=== PATIENT | female | born 1975 | race Caucasian/White ===

== ENCOUNTER 2016-09-19 00:31 | Observation (INO) | payer MEDICAID ==
[~2016-09-19] VITALS: Ht 157.5 cm; Wt 100.4 kg
--- NOTE | ~2016-09-19 | ECH ---
Transthoracic Echocardiography Report (TTE) Demographics Patient Name THOMAS POLANCO Date of Study 09/19/2016 Patient Number [id number] Visit Number [id number] Date of 1975 Room Number 418 Accession Number [id number] Gender Female Age 41 year(s) Referring Josh Healy Location Manager Stacy Pineda [facility] Physician Roman Ceballos MD Physician Interpreting Roman Ceballos Vice President & General Manager [employer] Physician MD Supervising Ordering Physician Josh Healy MD/P Nurse Stress Ferry Hand Conclusions Summary Technically fair exam. The estimated left ventricular ejection fraction is 60-65%. Mild septal left ventricular hypertrophy. Mild mitral regurgitation. Procedure Type of Study TTE procedure:Echo Complete SF. Procedure Date Date: 09/19/2016 Start: 11:36 AM Technical Quality: Fair due to body habitus. Indications:Atypical Chest Pain. Appropriate Use Criteria: 9 Height: 62 inches Weight: 220.02 pounds BSA: 1.99 m Rhythm: NSR HR: 59 bpm BP: 117/74 mmHg M-Mode/2D Measurements LV Diastolic Dimension: 4.83 cm LV Systolic Dimension: 0.85 cm LV Septum Diastolic: 1.13 cm LV Septum Systolic: 2.79 cm LV PW Diastolic: 0.9 cm LV PW Systolic: 4.69 cm Cardiac Output: 4.55 l/min AO Root Dimension: 3.08 cm Cardiac Index: 2.29 l/min*m RV Diastolic Dimension: 2.31 cm LA volume: 53.24 ml LA volume index: 27 ml/m LVOT: 1.92 cm RV Base: 3.14 cm LVOT VTI: 26.64 cm RV Mid: 3.08 cm LV Stroke volume: 77.09 ml RV Length: 7.36 cm LV Stroke volume index: 38.74 ml/m Doppler Measurements AV Peak Velocity: 1.26 m/s MV Peak E-Wave: 0.66 m/s AV Peak Gradient: 6.35 mmHg MV Peak A-Wave: 0.42 m/s AV Mean Gradient: 3.66 mmHg MV E/A Ratio: 1.59 LVOT Peak Velocity: 1.1 m/s MV P1/2t: 56.5 msec AV Area (Continuity):2.71 cm MV Deceleration Time: 207.2 msec TR Velocity:2.12 m/s MV Area (PHT): 3.9 cm TR Gradient:17.95 mmHg PV Peak Velocity: 0.79 m/s Estimated RAP:3 mmHg PV Peak Gradient: 2.49 mmHg Estimated RVSP: 21 mmHg Estimated PASP: 20.95 mmHg RA Area: 12.55 cm Findings Left Ventricle The left ventricle is normal in size . Mild septal left ventricular hypertrophy. Diastolic assessment reveals normal relaxation. Right Ventricle Normal right ventricle structure and function. Left Atrium Normal left atrial size by left atrial volume index of 26.7ml/m2. Right Atrium Normal right atrial size. Mitral Valve Normal mitral valve structure and function. Mild mitral regurgitation by color Doppler. Aortic Valve Normal aortic valve structure and function. There is no aortic regurgitation by color Doppler. Tricuspid Valve Normal tricuspid valve structure and function. Mild tricuspid regurgitation by color Doppler. Estimated pulmonary pressures within normal range. Pulmonic Valve Normal pulmonic valve structure and function. Pericardial Effusion No evidence of pericardial effusion. Miscellaneous Visualized portions of the aortic root and ascending aorta appear normal in size. Pleural Effusion No evidence of pleural effusion. Contractility Score LV regional wall motion:(0-Non visualized 1-Normal 2-Hypokinesis 3-Akinesis 4-Dyskinesis 5-Aneurysm) Signature
--- NOTE | ~2016-09-19 | ECH ---
Cardiac Stress Test Demographics Patient Name THOMAS POLANCO Date of Study 09/21/2016 Patient Number [id number] Visit Number [id number] Date of 1975 Room Number 418 Accession Number [id number] Gender Female Age 41 year(s) Referring Josh Michele Monet Interpreting [facility] Physician Physician Roman Ceballos MD Physician Ordering Roman Walton R Track Layer Physician MD Supervising Roman Ceballos Stress Electromechanical Equipment Tester Korin Ramirez MD/BRYANT GUZMAN Nurse Umair Piper The procedure was explained in detail to the patient. Risks, complications and alternative treatments were reviewed. Written consent was obtained. Medications reviewed with patient prior to procedure. Procedure Type of Study Cardiac Stress Test:Treadmill Stress Test SF. Procedure Date Date: 09/21/2016 Start: 07:00 AM Indications:Chest pain. Patient Status: Routine Allergies - No known allergies. Conclusions Summary 1. Negative exercise treadmill for ischemia. Stress Protocol Rest ECG Within normal limits. Normal sinus rhythm. Resting HR:69 bpmResting BP:108/82 mmHg Stress Stress Protocol: Exercise - Robin Peak HR: 166 bpm HR BP Product: [id number] Peak BP: 144/92 mmHg Max Exercise: 6.6 METS Predicted HR: 180 bpm % of predicted HR: 92 Test Duration: 06:40 min Reason for Termination: Dyspnea ECG No significant ST changes with exercise. Arrhythmias No arrhythmias noted. Symptoms chest pain Signature
--- NOTE | ~2016-09-19 | OR ---
ADMIT: 09/19/2016 RM/LOC: 418 [facility] MR#: [id number] [address] [address] THOMAS POLANCO [address] [place] [phone] Operative/Delivery Room Report SEX: F AGE: 41 : 1975 SURGERY DATE: 09/20/2016 SURGEON: Robert Chau MD PRE-PROCEDURE DIAGNOSIS: Chest pain. POSTPROCEDURE DIAGNOSIS: Antral gastritis with possibly 2 small healing pyloric channel ulcers. PROCEDURE: EGD with antral distal esophageal biopsies. INDICATIONS: Patient is a 41-year-old with nonspecific left-sided chest and shoulder discomfort with no obvious precipitating factors who presents for EGD evaluation. FINDINGS: The patient was taken to the endoscopy suite. IV sedation was given. She was placed in left lateral decubitus position. A bite-block was placed in the patient's mouth. The gastroscope was introduced down the oropharynx, down the esophagus, into the stomach through the pylorus and the duodenum. The duodenal bulb, second and third portion of the duodenum appeared normal with no pathology. Right within the pyloric channel, there were 2 areas that appeared to be possibly 2 small healing pyloric channel ulcers and there was surrounding antral gastritis. I did do antral biopsies right over the top of these small healing sites. Remainder of the gastric body and fundus actually appeared normal. On retroflexion view, there did not appear to be a hiatal hernia. On exam of the GE junction, there was a normal squamocolumnar junction with possibly some mild esophagitis. No varices. No Montoya's esophagus. No stricture. I did do several distal esophageal biopsies due to her chest pain. Remainder of the mid and upper esophagus otherwise unremarkable. The gastroscope was removed. The patient tolerated the procedure without difficulty, transferred to recovery room in good condition during indication. Robert Chau MD/ carlee JOB #: [id number] CC: Ryne Moreno, Attending Physician Ryne Moreno, Family Physician
--- NOTE | 2016-09-19 07:02 | ER ---
ADMIT: 09/19/2016 RM/LOC: 418 [facility] MR#: [id number] 2620 [facility] [address] [place] [id number] THOMAS POLANCO [address] [place] [phone] Emergency Room Report SEX: F AGE: 41 : 1975 DATE: 09/19/2016 CHIEF COMPLAINT: Chest pain. HISTORY OF PRESENT ILLNESS: The patient is a 41-year-old female, complaining of substernal to epigastric pain radiating to left shoulder and scapula associated with nausea and eructations within 4 hours of eating ribs. States the pain is worse when she lies down. Denies any vomiting, fevers, chills, or previous discomfort. Strong family history for gallbladder disease in both children. Adolescent children have had their gallbladders out as well as her mother. Also, strong family history of premature heart disease and in her father. The patient's coronary risk factors only are family history. PAST MEDICAL HISTORY: ILLNESSES: Tricuspid regurg by history. OPERATIONS: Appendectomy. ALLERGIES: NONE. MEDICATIONS: None. SOCIAL HISTORY: . Nonsmoker. Nondrinker. No illicit drugs. FAMILY HISTORY: Positive for heart disease in father, gallbladder disease in mother and 2 children. REVIEW OF SYSTEMS: A 12-point review of systems negative for all other systems, illnesses, or operations except as outlined above. PHYSICAL EXAMINATION: VITAL SIGNS: Temperature 98.6, pulse 68, respirations 24, BP 155/84, SaO2 of 100% on room air. GENERAL: Anxious, non-diaphoretic, without jaundice or icterus HEENT: Normocephalic. No evidence of epistaxis, rhinorrhea, or otorrhea. NECK: Supple without lymphadenopathy or thyromegaly. CHEST: Clear. Breath sounds equal. HEART: Regular rate and rhythm without murmur, gallop, or edema. ABDOMEN: Soft, tender right upper quadrant without mass or megaly. Bowel sounds hypoactive. EXTREMITIES: No evidence of Homans sign, synovitis, or dermatitis. NEURO: EOMI. PERRLA. No evidence of drift, dysarthria, or ataxia. Gait normal. MEDICAL DECISION MAKING: EKG shows sinus bradycardia, rate of 54 with low voltage, nonspecific ST changes. Chest x-ray, negative. CTA chest, negative for PE or pneumonia. CT abdomen; slightly distended gallbladder, otherwise unremarkable. Normal CBC, CMP, lactic 1.4, lipase 186, CRP 0.61, D-dimer 0.54, BNP 158, troponin less than 0.015. The patient was given IV fluids, Zofran, Toradol, Dilaudid, and IV acetaminophen with slight improvement. GI cocktail, Protonix with no significant change. Discussed case with Dr. Moreno, ADMIT: 09/19/2016 RM/LOC: 418 [facility] MR#: [id number] [address] [place] [phone] THOMAS POLANCO [address] [place], [place] [phone] Emergency Room Report SEX: F AGE: 41 : 1975 who agreed and gave orders to nursing staff. DIAGNOSES: 1. Atypical chest pain. 2. Biliary colic. 3. Strong family history of gallbladder disease. 4. Strong family history of premature heart disease. RECOMMENDATION: Admit inpatient telemetry for Dr. Moreno. ADMISSION/DISCHARGE CONDITION: Stable. CODE STATUS: The patient is a full code. Jeff Hazel MD/ osbaldol JOB #: [id number] CC: Ryne Moreno MD, Attending Physician Ryne Moreno MD, Family Physician Ryne Moreno MD
[2016-09-22] MEDS ORDERED: CARAFATE DPS1 GM PO (14:19)
[2016-09-22] MEDS ORDERED: OMEPRAZOLE40 MG PO (14:19)
[2016-09-22] MEDS ORDERED: PEPCID40 MG PO (14:19)
[2016-09-22] MEDS ORDERED: TYLENOL DPS325 MG PO (14:20)
[2016-09-22] MEDS ORDERED: BENTYL-DPS20 MG PO (14:20)
[2016-09-22] MEDS ORDERED: TYLENOL EXTRA500 M1 PO (14:20)
[2016-09-22] MEDS ORDERED: MAALOX DPS30 ML PO (14:20)
--- NOTE | 2016-09-23 10:38 | CO ---
ADMIT: 09/19/2016 RM/LOC: 418 [facility] MR#: [id number] [facility]#: [id number] [address] [address] THOMAS POLANCO [address] [place] [phone] Consultation SEX: F AGE: 41 : 1975 DATE OF CONSULTATION: 09/19/2016 ATTENDING PHYSICIAN: Ryne Moreno CONSULTING PHYSICIAN: Anton Owens MD REASON FOR CONSULT: Chest pain. HISTORY OF PRESENT ILLNESS: The patient presents to the ER today with an episode of chest pain that started last night. The patient described the chest pain as substernal and epigastric tightness. This chest pain has been constant since last night. She says it radiates to her left shoulder and scapula as well as the left side of her neck. Associated symptoms included nausea without vomiting, mild shortness of breath, and mild diaphoresis. The patient states that the chest tightness is worse when lying down. Nothing makes it better. This chest pain episode started last night a couple hours after eating ribs. The patient reports that she has had several episodes of this chest tightness over the past week, but they went away after a short period of time. She denies association of the chest pain with eating or exertion. The patient does report that she has a strong family history of gallbladder disease. CARDIOVASCULAR RISK FACTORS: Positive for family history of heart disease as her dad had premature coronary artery disease. Negative smoking history, drinking history, drug use or abuse, High blood pressure, High cholesterol or diabetes. She has no previous cardiac history. The patient does take a baby aspirin daily. PAST MEDICAL HISTORY: Significant illnesses: none. MEDICATIONS: Normal saline, Protonix 40 mg IV q.24 hours. HOME MEDICATIONS: Aspirin 81 mg p.o. daily. ALLERGIES: NO KNOWN DRUG ALLERGIES. FAMILY HISTORY: Dad, premature coronary artery disease. SOCIAL HISTORY: The patient does not drink alcohol. Has history of drug use or abuse. Marital status: . REVIEW OF SYSTEMS: GENERAL: Denies fatigue, fever, chills, sweats, rash, or weight loss. EYES: Denies double vision, blurred vision, cataracts, or glaucoma. ENT: Denies hearing loss or problems with nose, mouth or throat. PULMONARY: Denies cough, sputum production, asthma, emphysema or bronchitis. Denies snoring loudly, wakefulness at night, or fatigue upon awakening. GASTROINTESTINAL: Denies heartburn or difficulty swallowing. No change in bowel habits. Denies dark or bloody stools. No history of ulcers, hiatal hernia, or gallbladder or liver disease. ADMIT: 09/19/2016 RM/LOC: 418 [facility] MR#: [id number] [address] [address] THOMAS POLANCO [address] [place] [address] Consultation SEX: F AGE: 41 : 1975 GENITOURINARY: Denies dysuria, hematuria, nocturia, urinary tract infection, or kidney stones. Denies history of renal insufficiency or failure. MUSCULOSKELETAL: Denies history of arthritis or gout. Denies muscle or joint pains. ENDOCRINE: Denies history of thyroid dysfunction or diabetes. HEMATOLOGIC: Denies history of anemia, easy bruising, or cancer. NEUROLOGIC: Denies chronic headaches, dizziness, syncope, stroke, seizures or numbness or tingling. PSYCHIATRIC: Denies history of mental illness or feelings of depression. PHYSICAL EXAMINATION: GENERAL: No acute distress, quiet. NECK: No bruits or JVD. HEART: Regular. No murmurs. LUNGS: Clear to auscultation. No crackles. ABDOMINAL: Obese. EXTREMITIES: No edema. PSYCH: Alert and oriented x3. LABS: Sodium 141, potassium 3.7, chloride 108, CO2 27, BUN 11, creatinine 1.0, glucose 104, calcium 8.8, D-dimer 0.54, CRP 0.61, CK-MB less than 0.05, troponin less than 0.015. White blood cell count 8.3, hemoglobin 11.1. Ultrasound of gallbladder unremarkable. Chest x-ray is negative. EKG, sinus bradycardia at [address] angiogram negative for PE or pneumonia. CT of the abdomen and pelvis-slightly distended gallbladder, otherwise unremarkable. HIDA pending. Echocardiogram pending. ASSESSMENT: 1. Atypical chest pain. 2. Family history of premature coronary artery disease. RECOMMENDATIONS: Low suspicion for acute coronary syndrome or obstructive coronary artery disease. Echocardiogram today. We will decide about need for stress test based on GI evaluation and echo results. JADEN Pinedo Student / Anton Owens MD / carlee JOB #: [id number] CC: Ryne Moreno, Attending Physician Ryne Moreno, Family Physician
--- NOTE | 2016-09-23 19:22 | HP ---
ADMIT: 09/19/2016 RM/LOC: 418 [facility] MR#: [id number] 2620 [facility] [address] [place] [phone] ADELAIDE POLANCORA Healy [address] [place] [address] History and Physical SEX: F AGE: 41 : 1975 DATE OF SERVICE: CONSULTING PHYSICIAN: [facility] as well as [facility]. CHIEF COMPLAINT: Chest pain with associated nausea and epigastric discomfort. CLINICAL HISTORY: The patient is a 41-year-old white female, [place] patient, who is admitted early on the morning of 09/19/2016 after presenting to the emergency room at approximately 2:00 a.m. complaining of substernal chest pain, epigastric abdominal pain with marked nausea with excessive gas and bloating. The chest discomfort and epigastric pain radiated up into her upper chest as well as into her left shoulder and posteriorly into her scapula. The patient notes that she had been feeling fine on 09/18/2016. She ate a large meal late in the evening around 8:00 p.m., having barbecued ribs. The pain developed approximately 4 hours after her ingestion of her large meal. She notes that the pain was quite severe in the substernal and epigastric area, seemed to radiate through into her back. She was very nauseated with this. The pain was quite intense and for that reason, her brought her to the emergency room because she could not get comfortable at home. It is noted that she is admitted with similar chest pain in 12/2015, was admitted then with chest discomfort with pain in the chest and epigastric area radiating to her left side of her neck, left jaw as well as into the left posterior chest. On both occasions, she has been very nauseated, but has not vomited. She notes that the chest pain is so severe on each occasion, it feels like it is hard for her to take a deep breath, and she gets short of breath. The patient notes in the interim since she was last hospitalized in 12/2015, she has had a couple of minor episodes of similar pain, but has never been of this severity. She notes the pain she had, which started early on the morning of 09/19/2016, to be the worst episode of the chest pain that she has had. It is noted that she was seen by Cardiology during her last admission and had been recommended that she have an outpatient stress test to rule out cardiac etiology for her chest pain, however, she never followed through on that Cardiology followup at [facility]. The patient was evaluated in the ER by Dr. Hazel. Her EKG in the ER was noted to have no acute changes and no changes when compared to her previous EKG from December. She had a sinus bradycardia with some nonspecific ST-T wave changes. Her chest pain was severe enough that she also had a CTA of the chest, which was negative for pulmonary embolus or pneumonia. No acute pathology. The chest x- ray was also normal. A CT of the abdomen and pelvis was obtained, which showed a slightly distended gallbladder, otherwise was unremarkable. The patient had multiple labs in the ER including a lipase which was normal at 186, LFTs that were normal, cardiac enzymes were normal with a troponin I of less than 0.15. While in the ER, she was given IV fluids, IV Zofran, IV Toradol, IV acetaminophen, and finally IV Dilaudid. The IV Dilaudid did settle her pain down. She was also given GI cocktail as well as oral Protonix with no relief of pain. In view of the severity of her chest pain, it was felt best to admit to rule out cardiac etiology as well as to pursue other noncardiac causes for chest pain. ADMIT: 09/19/2016 RM/LOC: 418 [facility] MR#: [id number] [address] [address] THOMAS POLANCO [address] [place] [address] History and Physical SEX: F AGE: 41 : 1975 PAST MEDICAL HISTORY: Recent hospitalizations: As noted, she was hospitalized in 12/2015 with similar episode of chest pain. She has had no other recent hospitalizations. PAST SURGICAL HISTORY: Previous surgical procedures include three previous C- sections as well as an appendectomy and a tubal ligation. CURRENT MEDICATIONS: None. ALLERGIES: NONE KNOWN. REVIEW OF SYSTEMS: A 12-point review of systems at this time is negative other than for her current chest pain, epigastric pain, nausea, and vomiting. Once again, do note she has had some mild episodes of similar pain off and on over the last 9 months since her prior admission. On brief review of systems; CONSTITUTIONAL: No fever, no chills. Appetite has been normal. HEENT: No complaints. PULMONARY: She is a nonsmoker. No shortness of breath. No cough. CARDIAC: No significant cardiac history. Do note that her echocardiogram done during her last hospitalization showed a normal EF and mild tricuspid regurgitation, otherwise no abnormalities. GASTROINTESTINAL: No prior history of peptic ulcer disease or gallbladder disease. She notes a strong family history of gallbladder problems in her family. She denies any melena or hematemesis or other GI complaints. GENITOURINARY: Denies any risk of , has had previous tubal ligation. Menses still regular. No voiding symptoms. MUSCULOSKELETAL: No complaints. NEUROLOGIC: No focal symptoms. ENDOCRINE: No history of diabetes or thyroid problems. HEMATOLOGIC: No history of anemia or clotting disorders. SOCIAL HISTORY: The patient is . She is a nonsmoker. She does not consume alcoholic beverages. No history of illicit drug use. FAMILY HISTORY: There is a strong family history of gallbladder disease. The patient denies any significant family history of coronary artery disease. PHYSICAL EXAMINATION: VITAL SIGNS: At this time, her temp is 96.8, pulse is 64, respirations 14, blood pressure 116/74, and O2 saturation 97%. Current weight 220 pounds. GENERAL: The patient is a 41-year-old female, who appears her stated age. She is in no acute distress. She is somewhat fatigued and tired since she did not sleep at all last night because of the pain. She is oriented x3. HEENT: Her ears are clear. Nose and throat are noninflamed. Oropharynx is normal. Pupils are equal and reactive. Sclerae nonicteric. Conjunctivae noninflamed. NECK: Supple. Thyroid not enlarged. Carotid pulses are full and symmetric. No carotid bruits. ADMIT: 09/19/2016 RM/LOC: 418 [facility] MR#: [id number] [address] [address] THOMAS POLANCO [address] [place] [address] History and Physical SEX: F AGE: 41 : 1975 LUNGS: Noted to be clear with good symmetric breath sounds. There is no dullness to percussion. HEART: Has a regular rhythm. No murmurs. No lifts, thrills, or heaves. BREAST AND PELVIC: Exams not performed. ABDOMEN: Soft and nontender. No masses. No organomegaly. Bowel sounds are normoactive. She does have some tenderness in the epigastrium and mild tenderness in the right upper quadrant. EXTREMITIES: Normal to gross exam with no peripheral edema. No clubbing or cyanosis. No calf tenderness. Negative Homans sign. NEUROLOGIC: She is intact with no focal deficits. Balance is normal. Gait is normal. Cranial nerves II through XII are grossly intact. LABORATORY DATA: Preadmission laboratory work, as already noted, her EKG showed sinus bradycardia with nonspecific ST-T wave changes. Chest x-ray is clear. CTA of the chest is negative. CT of the abdomen shows a slightly distended gallbladder. Her CBC was normal. CMP was normal. Lactic acid was normal at 1.4. Lipase was normal. D-dimer was negative. ProBNP was 158. Cardiac enzymes were normal with troponin I of less than 0.015. ASSESSMENT AT THE TIME OF ADMISSION: 1. Atypical chest pain, recurrent. 2. Epigastric and right upper quadrant abdominal pain. 3. Obesity. 4. Remote past history of cardiomyopathy. 5. Strong family history of gallbladder disease. PLAN: Plan is to admit the patient OPO. Monitor serial EKGs and enzymes. Once again, ask Cardiology to see her in consultation. I feel that we need to complete the workup with another echocardiogram as well as a nuclear medicine stress exercise test. We will also get HIDA scan of the gallbladder and gallbladder ultrasound to rule out biliary colic as a cause for her pain. Also, feel that we should have [facility] see her in consultation and proceed with EGD to rule out reflux esophagitis as a cause for her pain. Admitted for cardiac monitoring with serial EKGs and enzymes as well as further Cardiology and [facility] consultations. Ryne Moreno MD/ carlee JOB #: [id number] CC: Ryne Moreno, Attending Physician Ryne Moreno, Family Physician
--- NOTE | 2016-10-13 11:48 | CO ---
ADMIT: 09/19/2016 RM/LOC: 418 [facility] MR#: [id number] [address] [address] FREDA POLANCO [address] [place] [id number] Consultation SEX: F AGE: 41 : 1975 DATE OF CONSULTATION: 09/19/2016 ATTENDING PHYSICIAN: Ryne Moreno CONSULTING PHYSICIAN: Robert Chau MD REASON FOR CONSULTATION: Abdominal pain, recurrent episode. HISTORY OF PRESENT ILLNESS: Freda is a very pleasant 41-year-old female, who came into the ER for having some chest pain and subsequent abdominal pain. Currently in the hospital, the patient reports that her abdominal pain resolved fairly quickly, but she still has some residual chest pain. At that time, the abdominal pain was more diffuse. Currently she is nauseous, but she attributes that from not having anything to eat. She denies any hematemesis. She further denies any changes in her bowels. Her last bowel movement was yesterday. She has had endoscopy workup before with an EGD back in 1998, which was negative and a colonoscopy about six to seven years ago to which I do not see those reports in the hospital record. PAST MEDICAL HISTORY: No significant history. PAST SURGICAL HISTORY: 1. Please see HPI. 2. Appendectomy. 3. Couple C-sections. ALLERGIES: NO KNOWN DRUG ALLERGIES. MEDICATIONS: Well documented in chart. FAMILY HISTORY: Noncontributory. SOCIAL HISTORY: The patient reports no alcohol, tobacco, or illicit drug use. REVIEW OF SYSTEMS: CONSTITUTIONAL: The patient denies any fever, chills, or night sweats. The rest of comprehensive 10-point review of systems was performed and all other systems are negative. PHYSICAL EXAMINATION: GENERAL: The patient is in no acute distress. She is alert and oriented. She is however ill appearing. HEENT: Head is normocephalic and atraumatic. EOMS are intact. Conjunctivae free of icterus, erythema, or pallor. Pinnae, free of deformities. Nose, midline. No tracheal deviation. NECK: Supple. SKIN: Negative for jaundice, clubbing, edema, pallor, or cyanosis. LUNGS: Clear to auscultation bilaterally. Normal respiratory effort. HEART: Regular rate and rhythm. Distal pulses intact. ABDOMEN: Soft and nondistended, minimal tenderness diffuse. NEURO: Grossly intact. ADMIT: 09/19/2016 RM/LOC: 418 [facility] MR#: [id number] [id number] [address] FREDA POLANCO [address] [place] [id number] Consultation SEX: F AGE: 41 : 1975 LABORATORY DATA: Grossly unremarkable. DIAGNOSTIC IMAGIN. Ultrasound of abdomen revealed no pathologic findings with the gallbladder. No stones noted. 2. HIDA scan pending. ASSESSMENT: Abdominal pain. PLAN: Currently, the patient is further getting near gallbladder worked up with a HIDA scan. We will plan for EGD tomorrow. However, we might change our management based off HIDA scans later this afternoon. She is in agreement with this plan, had all her questions answered and would like to proceed. I will get a consent for EGD and await HIDA scan results. JADEN Van / Robert Chau MD / carlee JOB #: [id number] CC: Ryne Moreno, Attending Physician Ryne Moreno, Family Physician
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
--- NOTE | 2016-10-25 12:51 | DS ---
ADMIT: 09/19/2016 RM/LOC: 418 [facility] MR#: [id number] [address] [address] THOMSA POLANCO [address] [place] [address] General Discharge Summary SEX: F AGE: 41 : 1975 ADMISSION DATE: 09/19/2016 DISCHARGE DATE: 09/21/2016 ADMITTING DIAGNOSIS: As per history and physical. FINAL DIAGNOSES: 1. Atypical chest pain, noncardiac. 2. Pyloric channel ulcer with pylorospasm/peptic ulcer disease. 3. Chronic gastritis. 4. Abnormal HIDA scan of the gallbladder. 5. Normal nuclear medicine cardiac stress test. 6. Obesity. PROCEDURES: The patient did have EGD with biopsy on 09/20/2016. She also had a normal stress test on 09/21/2016. COMPLICATIONS: None. CLINICAL HISTORY: The patient is a 41-year-old white female, admitted to [facility] after presenting to the ER complaining of left- sided chest pain. The patient was having chest pain radiating to her left shoulder and left arm. The patient is a city call patient. She has a history of similar chest pain and had been admitted in December of 2015. She has had the discomfort off and on since that time, but on the day of admission, was more intense and persisted. Her workup in the ER was negative. Given her atypical chest pain, it was felt best to admit. For further details of her clinical history as well as her past medical history, please see my dictated history and physical as well as dictated Cardiology consultation by Dr. Anton Owens and dictated surgical consult by Dr. Chau. LABORATORY AND X-RAY SUMMARY FROM THIS ADMISSION: For complete details of lab, please see cumulative laboratory summary included in the chart. Her initial CBC showed a white count of 8300, hemoglobin 11.1, and hematocrit 34.7. Her D-dimer was elevated at 0.54 in the emergency room. Her cholesterol during this admission was noted to be normal at 129 with triglycerides of 57, HDL of 39, LDL of only 79. Her lactic acid was normal. On admission, her CK, CK-MB, and troponin 1 were all normal. She had 3 sets of cardiac enzymes all normal with troponin 1 less than 0.015 in all 3 collections. Screening chemistry panel was normal as well. Amylase and lipase were normal. ProBNP was 158. A CTA of her chest was done in the ER, which was negative for pulmonary embolus. No significant pathology noted on chest CT. A CT of her abdomen and pelvis was also normal. She did have a HIDA scan of her gallbladder, which showed an abnormal ejection fraction suggesting possible acalculous cholecystitis. She had a normal chest x-ray and a normal gallbladder ultrasound. Her echocardiogram showed an EF of 60% to 65%, mild left ventricular hypertrophy, mild mitral regurgitation. Her resting EKG showed sinus bradycardia with no significant ST-T wave changes. Serial EKGs showed no change. The patient did have stress exercise test performed on 09/21/2016. ADMIT: 09/19/2016 RM/LOC: 418 [facility] MR#: [id number] [address] [place] [phone] THOMAS POLANCO [address] [place] [address] General Discharge Summary SEX: F AGE: 41 : 1975 HOSPITAL COURSE: The patient was admitted with atypical chest pain. Admitted to rule out cardiac etiology. Dr. Naseem lai manager commercial was consulted. The patient did ultimately have essentially normal echocardiogram as well as a normal stress test during this hospital stay. [facility] was consulted to rule out underlying GI etiology for her pain and an EGD was performed during this hospitalization. It did show that she did have a pyloric channel ulcer with chronic gastritis, which was felt to most likely be the cause of her chest pain that this was actually referred pain from her epigastrium. The patient did have some recurrent chest pain on 09/20/2016, but no change in her EKGs or cardiac enzymes. She did well on her stress test and was dismissed to home on 09/21/2016 after her normal stress test. It was felt her chest pain was secondary to her gastritis and pyloric channel ulcer. She was encouraged to follow through on aggressive treatment of her peptic ulcer disease. DISCHARGE MEDICATIONS: At discharge, she was dismissed on the following medications: 1. Omeprazole 40 mg 1 daily. 2. Pepcid 40 mg at bedtime. 3. Carafate 1 g t.i.d. 4. Librax 1 q.i.d. 5. Tylenol Extra Strength 2 every 6 hours p.r.n. pain. FOLLOWUP: She was encouraged to follow up with the [facility] or [facility]. CONDITION AT DISCHARGE: Stable and improved. PROGNOSIS: [place] to be excellent. Ryne Moreno MD/ carlee JOB #: [id number] CC: Ryne Moreno MD, Attending Physician Ryne Moreno MD, Family Physician
== END 2016-09-21 12:45 | disposition home or self-care (01) ==
LOC: ER 00:31 → 4PCU 03:00
PROVIDERS: ADMIT Family Medicine
PROC: 0DB38ZX Excision of Lower Esophagus, Via Natural or Artificial Opening Endoscopic, Diagnostic (ICD-10-PCS; principal; 2016-09-20)
DX: K29.50 Unspecified chronic gastritis without bleeding (principal); Z90.49 Acquired absence of other specified parts of digestive tract; Z98.51 Tubal ligation status; Z98.890 Other specified postprocedural states; E66.9 Obesity, unspecified; Z79.82 Long term (current) use of aspirin